=== PATIENT | female | born 1965 | race Caucasian/White ===

== ENCOUNTER 2017-05-21 12:19 | Day surgery (SDC) | payer BC ==
[~2017-05-21] VITALS: Ht 154.9 cm; Wt 72.7 kg
[2017-05-21] MEDS ORDERED: NS 1,000 ML IV ONE (13:00)
[2017-05-21] MEDS ORDERED: ONDANSETRON 4MG/2ML VIAL (J2405) IV ONE (13:00)
[2017-05-21] MEDS: MORPHINE 2 MG/ML 1ML SYRINGE IV PRN ×2 (13:11→16:22)
[2017-05-21] MEDS ORDERED: GASTROGRAFIN SOLUTION 30ML (Q9963) PO ONE ×2 (13:15→13:45)
[2017-05-21 13:16] LABS: BASO % 0.5 % (0.0-1.0); IMMATURE GRANULOCYTE % 0.8 % (0-0); LYMPH # 0.4 10^3/uL (1.5-4.5); LYMPH % 4.2 % (24.0-44.0); MEAN CORPUSCULAR HEMOGLOBIN 31.1 pg (27.0-33.0); MEAN CORPUSCULAR HGB CONC 33.9 g/dl (32.0-36.5); MEAN CORPUSCULAR VOLUME 91.6 fl (80.0-96.0); MONO % 0.4 % (0.0-5.0); NEUTROPHILS # 7.8 10^3/uL (1.8-7.7); NEUTROPHILS % 94.1 % (36.0-66.0); PLATELET COUNT, AUTOMATED 294 10^3/uL (150-450); RED CELL DISTRIBUTION WIDTH 12.4 % (11.5-14.5); WHITE BLOOD COUNT 8.3 10^3/uL (4.0-10.0)
[2017-05-21 13:34] LABS: INR 0.91
[2017-05-21 13:38] LABS: CONTROL LINE HCG INT CTR LINE PRESENT
[2017-05-21 13:45] LABS: ALKALINE PHOSPHATASE 144 U/L (45-117); ALT/SGPT 30 U/L (12-78); ANION GAP 8 MEQ/L (8-16); AST/SGOT 20 U/L (7-37); BLOOD UREA NITROGEN 14 MG/DL (7-18); CALCIUM LEVEL 9.4 MG/DL (8.5-10.1); CARBON DIOXIDE LEVEL 26 MEQ/L (21-32); CHLORIDE LEVEL 109 MEQ/L (98-107); CREATININE FOR GFR 0.89 MG/DL (0.55-1.02); GLOMERULAR FILTRATION RATE > 60.0 (>51); GLUCOSE, FASTING 119 MG/DL (70-105); POTASSIUM SERUM 3.7 MEQ/L (3.5-5.1); SODIUM LEVEL 143 MEQ/L (136-145)
[2017-05-21 13:46] LABS: ALBUMIN 3.7 GM/DL (3.2-5.2); ALBUMIN/GLOBULIN RATIO 0.79 (1.00-1.93); BILIRUBIN,DIRECT < 0.1 MG/DL (0.0-0.2); BILIRUBIN,TOTAL 0.4 MG/DL (0.2-1.0); TOTAL PROTEIN 8.4 GM/DL (6.4-8.2)
[2017-05-21] MEDS ORDERED: ISOVUE-370 76% 100ML VIAL (Q9967) As Ordered ONE (14:26)
--- NOTE | 2017-05-21 15:16 | REP ---
CT abdomen and pelvis with IV and oral contrast: History: Right lower quadrant pain. CT contrast dose: 100 ml of intravenous Isovue 370. Comparison CT study May 26, 2016. CT findings: Preliminary digital doctor of podiatry radiograph is unremarkable. The lung bases are clear. The liver and the spleen are normal in size and homogeneous in texture. No adrenal lesion is seen. There are areas of cortical scarring and atrophy in the upper pole and lower pole of the right kidney, unchanged from the comparison CT study. No hydronephrosis or intrarenal calculus is observed on today's CT images. The pancreas is unremarkable. No retroperitoneal mass or adenopathy is seen. No obstructive GI tract lesion is seen. No evidence of free intraperitoneal air is observed. The appendix is abnormal. It is dilated, fluid-filled and there is mild periappendiceal streaky density consistent with early acute appendicitis. The appendix measures 14 mm in greatest diameter. No appendicolith is seen. No abscess or regional free air is seen. No uterine or ovarian abnormality is seen. Urinary bladder is intact. No abdominal wall defect is seen. Impression: CT findings consistent with acute appendicitis. No abscess or free air seen. Signed by Andres Stewart MD 05/21/2017 04:14 P
[2017-05-21] MEDS ORDERED: ZOSYN 3.375 GM VIAL (J2543) As Ordered ONE (16:48)
[2017-05-21] MEDS ORDERED: BUPIVACAINE HCL 0.25% 30 ML VIAL As Ordered ONE (17:14)
[2017-05-21] MEDS ORDERED: PHENYLephrine HCL 500 MCG/5 ML (100MCG/ML) SYRINGE (J2370) As Ordered ONE (17:45)
[2017-05-21] MEDS ORDERED: PROPOFOL 200 MG/20 ML VIAL As Ordered ONE (17:45)
[2017-05-21] MEDS ORDERED: fentaNYL 250 MCG/5 ML INJECTION (J3010) As Ordered ONE (17:45)
[2017-05-21] MEDS ORDERED: ROCURONIUM BROMIDE 50 MG/5 ML VIAL As Ordered ONE (17:45)
[2017-05-21] MEDS ORDERED: LIDOCAINE 2% INJ 100 MG/5 ML SDV (FOR ANES.) As Ordered ONE (17:45)
[2017-05-21] MEDS ORDERED: MIDAZOLAM INJ 2 MG/2 ML VIAL (J2250) As Ordered ONE (17:45)
[2017-05-21] MEDS ORDERED: dexameTHASONE 4 MG/ML 1ML VIAL (J1100) As Ordered ONE (17:56)
[2017-05-21] MEDS ORDERED: ONDANSETRON 4MG/2ML VIAL (J2405) As Ordered ONE (17:58)
[2017-05-21] MEDS ORDERED: KETOROLAC 60 MG/2 ML VIAL (J1885) As Ordered ONE (17:58)
[2017-05-21] MEDS ORDERED: NEOSTIGMINE 10 MG/10 ML VIAL (J2710) As Ordered ONE (17:59)
[2017-05-21] MEDS ORDERED: GLYCOPYRROLATE INJ 0.2 MG/ML 2 ML VIAL As Ordered ONE (17:59)
[2017-05-21] MEDS ORDERED: LABETALOL HCL 100 MG/20 ML VIAL As Ordered ONE (18:10)
[2017-05-21] MEDS ORDERED: fentaNYL 100 MCG/2 ML INJECTION (J3010) IV PRN (19:15)
[2017-05-21] MEDS ORDERED: HYDROmorphone HCL 1 MG/ML SYRINGE (J1170) IV PRN (19:15)
[2017-05-21] MEDS ORDERED: PERCOCET 5MG/325MG TAB PO PRN (19:15)
[2017-05-21] MEDS ORDERED: LR 1,000 ML IV SCH (19:15)
[2017-05-21] MEDS ORDERED: ONDANSETRON 4MG/2ML VIAL (J2405) IV PRN ×2 (19:15→19:45)
[2017-05-21] MEDS ORDERED: ACETAMINOPHEN TAB 650MG DOSE (2X325MG) PO PRN (19:45)
[2017-05-21] MEDS ORDERED: MORPHINE 2 MG/ML 1ML SYRINGE IV PRN (19:45)
[2017-05-21] MEDS: LR 1,000 ML IV SCH (19:45)
[2017-05-21 20:00] VITALS: BP 109/66
[2017-05-21 20:30] VITALS: BP 101/59
[2017-05-21 21:00] VITALS: BP 107/63
[2017-05-21] MEDS: IBUPROFEN 400 MG TAB PO PRN (21:16)
[2017-05-21] MEDS: NORCO, ANEXSIA 5/325MG TABLET (HYDROcodone/ACETAMINOPHEN) PO PRN (21:17)
[2017-05-21 22:00] VITALS: BP 100/62
[2017-05-21 23:00] VITALS: BP 96/52
[2017-05-22] VITALS: BP 100/55
[2017-05-22 04:00] VITALS: BP 109/53
[2017-05-22] MEDS: IBUPROFEN 400 MG TAB PO PRN ×2 (04:45→09:23)
[2017-05-22] MEDS: NORCO, ANEXSIA 5/325MG TABLET (HYDROcodone/ACETAMINOPHEN) PO PRN ×2 (04:46→09:23)
[2017-05-22 08:00] VITALS: BP 105/56
[2017-05-22] MEDS: LR 1,000 ML IV SCH (09:05)
[2017-05-22] MEDS ORDERED: NORCOTAB PO (12:44)
--- NOTE | 2017-05-23 08:05 | RO ---
DATE OF PROCEDURE: 05/21/2017 PREOPERATIVE DIAGNOSIS: Acute appendicitis. POSTOPERATIVE DIAGNOSIS: Acute appendicitis. PROCEDURE PERFORMED: Laparoscopic appendectomy. SURGEON: Joao Alarcon MD ANESTHESIA: General. INDICATIONS FOR PROCEDURE: The patient is a 52-year-old woman who presented to the emergency department with a roughly 12-hour history of abdominal pain. She reported some minor discomfort when she retired to bed the night before, but was awakened early in the morning by abdominal pain. This increased during the course of the morning. She developed some nausea and vomiting. The pain became more intense and localized in the right lower quadrant. She presented to the emergency department. Her white blood cell count was normal, but she had a marked left shift. The CT scan showed a markedly dilated appendix with evidence for inflammation. She is now for a laparoscopic appendectomy for appendicitis. OPERATIVE PROCEDURE: The patient was placed under general endotracheal anesthesia. The patient's abdomen was prepped and draped in a sterile fashion. 0.25% Marcaine was infiltrated at each of the trocar sites. A short supraumbilical midline incision was made and this was deepened through the subcutaneous tissues. The fascia was opened along the midline and the peritoneum was opened bluntly. A Hill cannula was inserted and the abdomen was insufflated with carbon dioxide gas. The patient was tilted to a Trendelenburg position and rolled to the left. The laparoscope was inserted and inspection showed a normal-appearing liver and gallbladder. Visualized loops of the small and large bowel appeared normal. A 5 mm trocar was placed low in the midline and a second 5 mm trocar was placed in the left lower quadrant. The cecum was rotated medially and the dilated and inflamed appendix was identified lying just lateral to this. The mesoappendix was grasped. The mesoappendix was partially divided using the hook cautery. An opening was then created through the base of the mesoappendix. An endoscopic linear cutter stapler with a vascular load was placed across the remaining mesoappendix and closed and fired. There was a small bleeding point from the arterial site and this was controlled with cautery. The appendix seemed to have been nicely cleared of any surrounding fibrofatty tissues and the appendix was stapled at its junction with the cecum using a blue load of the endoscopic stapler. The appendix was placed in an Endopouch. The right lower quadrant was irrigated and inspected. There was no evidence of bleeding and the appendiceal stump closure was excellent. Inspection in the pelvis showed a small benign appearing cyst within the right ovary. The uterus appeared normal. The patient was returned to a flat position. The abdomen was deflated and the trocars were all removed. The appendix was recovered through the Cerda site and sent for permanent pathology. The fascia at the Cerda site was closed with interrupted simple sutures of #2-0 Vicryl. The skin incisions were all closed with buried #5-0 Vicryl and Steri-Strips. Light dressings were applied. The patient tolerated the procedure well without apparent complication. She was awakened in the operating room, extubated and moved to the recovery room in stable condition. SOL
== END 2017-05-22 13:00 | disposition home or self-care (01) ==
LOC: M ED 12:19 → M SDC 16:51 → M PED 19:50 → M SDC 05-22 13:00
PROVIDERS: ATTEND Surgery
DX: K35.3 Acute appendicitis with localized peritonitis (principal); F17.210 Nicotine dependence, cigarettes, uncomplicated
CPT/HCPCS: 44970; 74177; 80048; 80076; 81001; 83690; 84703; 85025; 85610; 88304; 96374; 96375; 96376; 99284; J1100; J1885; J2250; J2370; J2405; J2543; J2710; J3010; Q9963; Q9967

== ENCOUNTER → 2017-12-11 | Outpatient (REF) | payer BC ==
[2017-12-13 14:44] LABS: HPV HYBRID CAPTURE II Negative (Negative)
== END ==
LOC: M SFHCWAGY 09:45
DX: Z01.419 Encounter for gynecological examination (general) (routine) without abnormal findings (principal); Z11.51 Encounter for screening for human papillomavirus (HPV)

== ENCOUNTER → 2017-12-13 | Outpatient (CLI) | payer BC | LOC: M WHC 09:15 | DX: D25.1 Intramural leiomyoma of uterus (principal); N83.201 Unspecified ovarian cyst, right side | CPT/HCPCS: 76830 ==

== ENCOUNTER → 2018-01-08 | Outpatient (CLI) | payer BC | LOC: M WHC 09:17 | DX: Z12.31 Encounter for screening mammogram for malignant neoplasm of breast (principal) | CPT/HCPCS: 77067 ==

== ENCOUNTER → 2018-02-25 | Outpatient (CLI) | payer BC | LOC: M ADAMS 15:46 | DX: M77.32 Calcaneal spur, left foot (principal) | CPT/HCPCS: 73630 ==

== ENCOUNTER → 2018-03-27 | Outpatient (REF) | payer BC ==
[2018-03-27 12:26] LABS: HEMATOCRIT 44.9 % (36.0-47.0); HEMOGLOBIN 14.8 g/dl (12.0-15.5); MEAN CORPUSCULAR HEMOGLOBIN 30.6 pg (27.0-33.0); MEAN CORPUSCULAR VOLUME 92.8 fl (80.0-96.0); PLATELET COUNT, AUTOMATED 286 10^3/uL (150-450); RED BLOOD COUNT 4.84 10^6/uL (4.00-5.40); RED CELL DISTRIBUTION WIDTH 12.4 % (11.5-14.5); WHITE BLOOD COUNT 7.7 10^3/uL (4.0-10.0)
[2018-03-27 12:57] LABS: ALBUMIN 3.2 GM/DL (3.2-5.2); ALKALINE PHOSPHATASE 117 U/L (45-117); ALT/SGPT 32 U/L (12-78); ANION GAP 6 MEQ/L (8-16); AST/SGOT 21 U/L (7-37); BILIRUBIN,TOTAL 0.3 MG/DL (0.2-1.0); BLOOD UREA NITROGEN 14 MG/DL (7-18); CALCIUM LEVEL 8.5 MG/DL (8.5-10.1); CARBON DIOXIDE LEVEL 27 MEQ/L (21-32); CHLORIDE LEVEL 110 MEQ/L (98-107); CHOLESTEROL LEVEL 328 MG/DL (<200); CHOLESTEROL RISK RATIO 6.074 (<5); FREE T4 0.93 NG/DL (0.76-1.46); GLOMERULAR FILTRATION RATE > 60.0 (>51); GLUCOSE, FASTING 87 MG/DL (70-100); HDL CHOLESTEROL 54 MG/DL (>40); LDL CHOLESTEROL 230 MG/DL (<100); NON-HDL-C 274 MG/DL; POTASSIUM SERUM 4.7 MEQ/L (3.5-5.1); SODIUM LEVEL 143 MEQ/L (136-145); TOTAL PROTEIN 6.4 GM/DL (6.4-8.2); TRIGLYCERIDES LEVEL 222 MG/DL (<150)
== END ==
LOC: M SFHCADAM 09:03
DX: R63.5 Abnormal weight gain (principal); F17.210 Nicotine dependence, cigarettes, uncomplicated; Z87.442 Personal history of urinary calculi; R74.8 Abnormal levels of other serum enzymes; Z13.220 Encounter for screening for lipoid disorders

== ENCOUNTER → 2018-03-30 | Outpatient (REF) | payer BC ==
[2018-03-30 13:44] LABS: CHOLESTEROL LEVEL 339 MG/DL (<200); CHOLESTEROL RISK RATIO 6.053 (<5); HDL CHOLESTEROL 56 MG/DL (>40); LDL CHOLESTEROL 235 MG/DL (<100); NON-HDL-C 283 MG/DL; TRIGLYCERIDES LEVEL 242 MG/DL (<150)
== END ==
LOC: M SFHCADAM 08:08
DX: E78.00 Pure hypercholesterolemia, unspecified (principal)
CPT/HCPCS: 80061

== ENCOUNTER 2020-12-27 09:12 | Emergency (ER) | payer BC ==
[~2020-12-27] VITALS: Ht 157.5 cm; Wt 75.1 kg
[~2020-12-27 09:12] MED LIST: HYDR-3715 PO
[2020-12-27] MEDS ORDERED: KETOROLAC 30 MG/ML 1ML VIAL IV ONE (10:15)
[2020-12-27] MEDS ORDERED: ONDANSETRON 4MG/2ML VIAL IV ONE (10:15)
[2020-12-27] MEDS ORDERED: NS 1,000 ML IV ONE (10:15)
--- NOTE | 2020-12-27 10:45 | REP ---
INDICATION: right flank pain wrapping around to abd, h/o kidney stones COMPARISON: Comparison CT study is from May 21, 2017.. TECHNIQUE: Helical scanning is acquired and 3 mm axial images were reformatted. Coronal and sagittal MPR images were generated and reviewed. FINDINGS: Digital preliminary founder chairman and chief creative officer radiograph is unremarkable. Lung bases are clear on axial CT images. No pleural effusion or upper abdominal ascites is seen. The liver is normal in size homogeneous in texture. The spleen is normal in appearance. There is a small accessory splenule inferior to the spleen. Normal adrenal glands are seen. No abnormality is noted in the pancreas. There is calcific material in the dependent portion the gallbladder consistent with gravel-like gallstones.99 this is a new finding compared with 2017 prior study. There is some for multifocal cortical scarring in the lower pole and medial aspect of the upper pole of the right kidney unchanged from the 2017 prior study. This may reflect previous episodes of pyelonephritis or reflux nephropathy. It is unchanged. There is no evidence of hydronephrosis. There is a tiny 1 mm calcification in the collecting system in the left mid kidney. No other intrarenal calculus is observed. No ureteral stone is seen. There is a spherical simple appearing cyst in the right ovary measuring 5.4 by 4.4 x 4.7 cm. No uterine or left adnexal abnormality. No free fluid. Urinary bladder is unremarkable. No abdominal wall defect or bony destructive lesion is seen. IMPRESSION: 1. Cholelithiasis. 2. 5.4 cm cystic area right ovary. 3. Multifocal cortical scarring right kidney consistent with reflux nephropathy or previous episodes of pyelonephritis. No acute renal abnormality. 4. Tiny intrarenal calculus left mid kidney 1 mm in diameter. <Electronically signed by Minh Stewart > 12/27/20 1045
[2020-12-27 11:22] LABS: BASO # 0.1 10^3/uL (0.0-0.2); BASO % 0.9 % (0.0-1.0); EOS # 0.2 10^3/uL (0.0-0.5); EOS % 1.6 % (0.0-3.0); HEMATOCRIT 43.6 % (36.0-47.0); HEMOGLOBIN 14.3 g/dl (12.0-15.5); LYMPH # 2.2 10^3/uL (1.5-5.0); LYMPH % 20.8 % (24.0-44.0); MEAN CORPUSCULAR HEMOGLOBIN 30.4 pg (27.0-33.0); MEAN CORPUSCULAR HGB CONC 32.8 g/dl (32.0-36.5); MEAN CORPUSCULAR VOLUME 92.6 fl (80.0-96.0); MONO # 0.7 10^3/uL (0.0-0.8); MONO % 6.4 % (2.0-8.0); NEUTROPHILS # 7.5 10^3/uL (1.5-8.5); NEUTROPHILS % 69.2 % (36.0-66.0); PLATELET COUNT, AUTOMATED 262 10^3/uL (150-450); RED BLOOD COUNT 4.71 10^6/uL (4.00-5.40); WHITE BLOOD COUNT 10.8 10^3/uL (4.0-10.0)
[2020-12-27 11:43] LABS: ALBUMIN 3.5 GM/DL (3.2-5.2); ALT/SGPT 37 U/L (12-78); BILIRUBIN,TOTAL 0.2 MG/DL (0.2-1.0); BLOOD UREA NITROGEN 14 MG/DL (7-18); CALCIUM LEVEL 8.7 MG/DL (8.5-10.1); CARBON DIOXIDE LEVEL 26 MEQ/L (21-32); CHLORIDE LEVEL 113 MEQ/L (98-107); CREATININE FOR GFR 0.82 MG/DL (0.55-1.30); GLOMERULAR FILTRATION RATE > 60.0 (>51); GLUCOSE, FASTING 97 MG/DL (70-100); LIPASE 141 U/L (73-393); POTASSIUM SERUM 4.4 MEQ/L (3.5-5.1); SODIUM LEVEL 142 MEQ/L (136-145)
[2020-12-27] MEDS ORDERED: KETO10TAB PO (12:03)
[2020-12-27] MEDS ORDERED: ZOFR4TAB16 PO (12:03)
[2020-12-27 12:05] VITALS: BP 142/80
== END 2020-12-27 12:11 | disposition home or self-care (01) ==
LOC: M ED 09:12
DX: N83.201 Unspecified ovarian cyst, right side (principal); K80.20 Calculus of gallbladder without cholecystitis without obstruction; N20.0 Calculus of kidney; R11.0 Nausea; F17.200 Nicotine dependence, unspecified, uncomplicated
CPT/HCPCS: 74176; 80047; 80053; 81001; 83690; 85025; 96374; 96375; 99284; J1885; J2405

== ENCOUNTER → 2021-01-15 | Outpatient (CLI) | payer BC ==
[~2021-01-15] MED LIST changes: +KETO10TAB PO; +ZOFR4TAB16 PO
== END ==
LOC: M LABSMTC 10:41
PROVIDERS: ATTEND Anesthesiology
DX: Z01.812 Encounter for preprocedural laboratory examination (principal); Z20.822 Contact with and (suspected) exposure to COVID-19

== ENCOUNTER → 2021-01-15 | Outpatient (CLI) | payer BC ==
--- NOTE | 2021-01-15 14:47 | ECGEPIP ---
[facility] Test Date: 2021-01-15 Pat Name: FLORENTIN GIBBS Department: Room: - Gender: Female Motion Picture Director: allyssa : 1965 Requested By: VICK Hector Order Number: [id number] Reading MD: Oren Pickett Measurements Intervals [place] Rate: 71 P: 57 FL: 156 QRS: 23 QRSD: 82 T: 55 QT: 406 QTc: 441 Interpretive Statements Normal sinus rhythm with sinus arrhythmia Poor R-wave progression No prior ECG available for comparison at the time of interpretation. Electronically Signed on 01-15-2021 14:47:16 EDT by Oren Pickett
== END ==
LOC: M LAB 11:10
PROVIDERS: ATTEND Anesthesiology
DX: E78.5 Hyperlipidemia, unspecified (principal)

== ENCOUNTER 2021-01-20 08:50 | Day surgery (SDC) | payer BC ==
[~2021-01-20] VITALS: Ht 154.9 cm; Wt 71.2 kg
[~2021-01-20 08:50] MED LIST changes: +LIDOCAINE 1% MDV 20ML VIAL SQ PRN; +LR 1,000 ML IV ONE
[2021-01-20] MEDS ORDERED: dexameTHASONE 4 MG/ML 1ML VIAL (J1100 PER 1MG) As Ordered ONE (09:20)
[2021-01-20] MEDS ORDERED: LIDOCAINE 2% 100MG/5ML SDV (FOR ANES.) As Ordered ONE (09:20)
[2021-01-20] MEDS ORDERED: propofoL 200 MG/20 ML VIAL As Ordered ONE (09:20)
[2021-01-20] MEDS ORDERED: ONDANSETRON 4MG/2ML VIAL As Ordered ONE (09:20)
[2021-01-20] MEDS ORDERED: ROCURONIUM BROMIDE 50 MG/5 ML VIAL As Ordered ONE ×2 (09:20→11:45)
[2021-01-20] MEDS ORDERED: fentaNYL 100 MCG/2 ML INJECTION (J3010) As Ordered ONE ×3 (09:21→11:19)
[2021-01-20] MEDS ORDERED: MIDAZOLAM INJ 2MG/2ML VIAL (J2250 PER 1MG) As Ordered ONE (09:21)
[2021-01-20] MEDS ORDERED: LACRILUBE (AKWA TEARS) OPHTH OINT 3.5 GM As Ordered ONE (09:28)
[2021-01-20] MEDS ORDERED: BUPIVACAINE HCL 0.25% 30ML VIAL As Ordered ONE (10:27)
[2021-01-20] MEDS ORDERED: ACETAMINOPHEN 1000MG 100ML IV BTL (OFIRMEV) (J0131 PER 10MG) As Ordered ONE (11:03)
[2021-01-20] MEDS ORDERED: KETOROLAC 60MG 2ML VIAL As Ordered ONE (11:12)
[2021-01-20] MEDS ORDERED: SUGAMMADEX SODIUM 500 MG/5 ML VIAL (BRIDION) As Ordered ONE (11:12)
[2021-01-20] MEDS ORDERED: ESMOLOL INJ 100MG/10ML VIAL As Ordered ONE (11:45)
[2021-01-20] MEDS ORDERED: LR 1,000 ML IV SCH (12:40)
[2021-01-20] MEDS ORDERED: ONDANSETRON 4MG/2ML VIAL IV PRN (12:40)
[2021-01-20] MEDS ORDERED: oxyCODONE 5MG TAB PO PRN (12:40)
[2021-01-20] MEDS ORDERED: fentaNYL 100 MCG/2 ML INJECTION (J3010) IV PRN (12:40)
[2021-01-20] MEDS ORDERED: ACETAMINOPHEN TAB 650MG DOSE (2X325MG) PO PRN (12:45)
[2021-01-20] MEDS ORDERED: NORCO, ANEXSIA 5/325MG TABLET (HYDROcodone/ACETAMINOPHEN) PO PRN (12:45)
[2021-01-20] MEDS ORDERED: IBUPROFEN 600MG TAB PO PRN (12:45)
[2021-01-20 14:20] VITALS: BP 132/78
[2021-01-20] MEDS ORDERED: HYDR-3715 PO (14:57)
--- NOTE | 2021-01-20 18:14 | RO ---
OPERATIVE NOTE DATE OF OPERATION: 01/20/2021 PREOPERATIVE DIAGNOSIS: Symptomatic gallstones. POSTOPERATIVE DIAGNOSIS: Symptomatic gallstones. PROCEDURE: Robotic assisted laparoscopic cholecystectomy. SURGEON: Joao Alarcno MD MOLECULAR GENETIC PATHOLOGIST: Bernice Chavez. Bernice Chavez's fitness assistant was required for management of the robotic technology. She assisted in placement of the trocars, adjustment of the robotic arms, passages of instruments and placement of the specimen retrieval bag, as well as retrieval of the specimen and closure of the abdominal incisions. ANESTHESIA: General. INDICATIONS FOR THE PROCEDURE: The patient is a 55-year-old woman with a history of episodic upper abdominal pain consistent with biliary colic. Imaging confirmed cholelithiasis and she is now for a robotic assisted laparoscopic cholecystectomy. DESCRIPTION OF PROCEDURE: The patient was brought to the operating room and placed on the table in a supine position. She was placed under general endotracheal anesthesia. The patient's abdomen was prepped and draped in a sterile fashion. 25% Marcaine was infiltrated at each of the trocar sites. A short transverse incision was made in the left upper quadrant and a Veress needle was inserted. After a positive hanging drop test, the abdomen was inflated with carbon dioxide gas. An 8 mm robotic port was placed over the scope and advanced through the abdominal wall without difficulty. Initial examination showed a normal appearing liver. A portion of the stomach was seen. The abdominal contents were otherwise obscured by overlying omental fat. A second 8 mm trocar was placed just below the umbilicus and two additional ports were placed in the right lower quadrant. The patient was tilted to an approximately 10 degree reverse Trendelenburg position and rolled 5 degrees to the left. The patient cart was a da Nadege XI robot was then brought into position and the endoscope arm was docked to the infraumbilical port. Targeting took place in the area of the gallbladder in the right upper quadrant. The other arms were then docked as well. A cauterizing hook was placed in the left upper quadrant and a fenestrated bipolar and a grasping retractor were placed in the right lower quadrant. I then moved to the control console to proceed with the operation. The edge of the liver was elevated and the gallbladder was identified. The gallbladder was not acutely inflamed. The gallbladder was grasped with a grasper and elevated. Dissection began in the area of the gallbladder neck. With careful dissection, with the hook cautery, the cystic duct and cholecystic artery were both clearly identified. Both structures were then doubly clipped with hem-o-Yamini clips and divided with scissors. The gallbladder was then dissected free from the gallbladder bed using cautery. The gallbladder was not perforated in the course of dissection. The gallbladder was placed in an Endopouch. Inspection revealed no evidence of further bleeding and no bile leak. The robotic instruments were removed and the robot was un-docked and withdrawn. I returned to the patient's side at the operating table. The string of the specimen pouch was recovered through the infraumbilical site. The abdomen was deflated and the trocars were all removed. The gallbladder was recovered through the infraumbilical site. This necessitated extending the skin incision slightly. Palpation of the gallbladder revealed several stones up to about 6 to 7 mm in size. The gallbladder was sent for permanent pathology. The fascia was closed with interrupted simple sutures of 2-0 Vicryl. The skin incisions were then all closed with buried sutures of 4-0 Vicryl and Steri-Strips. Additional 25% Marcaine was infiltrated. Light dressings were applied. The patient tolerated the procedure well without apparent complication. She was awaken in the operating room, extubated and moved to the recovery room in stable condition.
== END 2021-01-20 14:30 | disposition home or self-care (01) ==
LOC: M SDC 08:50
PROVIDERS: ATTEND Surgery
DX: K80.10 Calculus of gallbladder with chronic cholecystitis without obstruction (principal)
CPT/HCPCS: 47562; 88304; J0131; J1100; J1885; J2250; J2405; J3010; S2900

== ENCOUNTER → 2022-01-18 | Outpatient (REF) | payer BC ==
[~2022-01-18] MED LIST changes: -LIDOCAINE 1% MDV 20ML VIAL SQ PRN; -LR 1,000 ML IV ONE
== END ==
LOC: M PLALAB 09:56
PROVIDERS: ATTEND Specialist
DX: Z12.4 Encounter for screening for malignant neoplasm of cervix (principal)
CPT/HCPCS: 87624; G0123

== ENCOUNTER → 2022-02-22 | Outpatient (CLI) | payer BC | LOC: M WHC 11:25 | PROVIDERS: ATTEND Specialist | DX: Z12.31 Encounter for screening mammogram for malignant neoplasm of breast (principal); N83.201 Unspecified ovarian cyst, right side ==